=== PATIENT | female | born 1995 | race Caucasian/White ===

== ENCOUNTER 2016-10-13 21:53 | Emergency (ER) | payer OTHER, MEDICAID ==
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
== END 2016-10-13 23:31 | disposition disaster alternative care site (69) ==
LOC: GACC 21:53
DX: O9A.211 Injury, poisoning and certain other consequences of external causes complicating pregnancy, first trimester (principal); Z04.1 Encounter for examination and observation following transport accident; O99.511 Diseases of the respiratory system complicating pregnancy, first trimester; J45.909 Unspecified asthma, uncomplicated; Z3A.01 Less than 8 weeks gestation of pregnancy; Z79.899 Other long term (current) drug therapy; V43.52XA Car driver injured in collision with other type car in traffic accident, initial encounter
CPT/HCPCS: G0463

== ENCOUNTER → 2016-10-13 | Outpatient (CLI) | payer OTHER | END | disposition disaster alternative care site (69) | LOC: GAMB 21:25 | DX: R52 Pain, unspecified (principal) | CPT/HCPCS: A0425; A0429 ==